=== PATIENT | female | born 1950 | race Native Hawaiian/Other Pacific Islander ===

== ENCOUNTER 2018-08-31 20:19 | Emergency (ER) | payer MEDICARE, OTHER ==
--- NOTE | 2018-08-31 20:43 | C.PDOC ---
History Of Present Illness pt tripped and fell on the street [employer]. No LOc. complaining of headache. No n/v, no visual changes, remembers the event. Complains of headache. right wrist pain Time Seen by Provider: 08/31/18 20:42 Chief Complaint (Nursing): Trauma History Per: Patient History/Exam Limitations: no limitations Onset/Duration Of Symptoms: Mins Current Symptoms Are (Timing): Still Present Severity: Moderate Pain Scale Rating Of: 3 Reports Recently: Treated By A Physician Recent travel outside of the [place]: No Additional History Per: Patient Past Medical History Reviewed: Historical Data, Nursing Documentation, Vital Signs Vital Signs: Last Vital Signs Temp 97.4 F L 08/31/18 20:30 Pulse 74 08/31/18 20:30 Resp 14 08/31/18 20:30 BP 149/88 08/31/18 20:30 Pulse Ox 97 08/31/18 20:30 Family History: States: No Known Family Hx - Social History Hx Alcohol Use: No Hx Substance Use: No - Immunization History Hx Tetanus Toxoid Vaccination: No Hx Influenza Vaccination: No Hx Pneumococcal Vaccination: No Review Of Systems Constitutional: Negative for: Fever, Chills Eyes: Negative for: Vision Change ENT: Negative for: Ear Discharge Cardiovascular: Negative for: Chest Pain Respiratory: Negative for: Shortness of Breath Musculoskeletal: Positive for: Other (wrist) Skin: Positive for: Other (abrasion right knee) Neurological: Positive for: Headache. Negative for: Weakness, Change in Speech, Confusion, Altered Mental Status, Dizziness Psych: Negative for: Anxiety Physical Exam - Physical Exam Appears: Non-toxic, No Acute Distress Skin: Warm, Dry Head: Tenderness, Laceration (2 cm right amish) Eye(s): bilateral: Normal Inspection Oral Mucosa: Moist Tongue: Normal Appearing Neck: Trachea Midline, Supple Cardiovascular: Rhythm Regular Respiratory: No Rales, No Rhonchi, No Wheezing Extremity: Other (abrasion r knee) Extremity: Bilateral: Normal ROM Neurological/Psych: Oriented x3, Normal Speech, Normal Cognition Gait: Steady ED Course And Treatment O2 Sat by Pulse Oximetry: 97 Pulse Ox Interpretation: Normal Laceration - Laceration Repair right amish Wound Length (In cm): 2 Description Of Wound: Linear Wound Cleansed With: Betadine, Sterile Saline Wound Examination: Irrigated With Saline Wound Closure: Suture (6) Suture Technique And Material Used: Prolene (6-o) Medical Decision Making Medical Decision Making: Upon provider reevaluation patient is feeling better, is medically stable, and requires no further treatment in the ED at this time. Patient will be discharged home . Counseling was provided and all questions were answered regarding diagnosis and need for follow up withdr gustafson. There is agreement to discharge plan. Return if symptoms persist or worsen. Disposition Counseled Patient/Family Regarding: Studies Performed, Diagnosis, Need For Followup - Disposition Referrals: Luis Angel Gustafson MD [Staff Provider] - Disposition: HOME/ ROUTINE Disposition Time: 20:42 Condition: FAIR Additional Instructions: Have sutures removed in 7 days Instructions: Laceration Repair With Stitches (DC), Minor Head Injury (DC), Wrist Sprain (DC), Skin Abrasions (DC), Wound Care (DC) Forms: [employer] (Montenegrin) - Clinical Impression Clinical Impression: Fall, Laceration of face, Contusion of wrist, right, Abrasion of knee, right, Minor head injury without loss of consciousness
[2018-08-31] MEDS ORDERED: Lidocaine Hydrochloride 0 ML INJ ONE (21:58)
[2018-08-31] MEDS ORDERED: Tdap Vaccine 0.5 ml Vial (10-64 yrs) IM ONE ×2 (22:04→22:15)
[2018-08-31] MEDS ORDERED: Lidocaine 1% w Epi 1:100,000 Inj INJ ONE (22:15)
[2018-08-31 23:18] VITALS: BP 118/73; PULSE 63; RESP 16; TEMP 97.7; O2SAT 98
--- NOTE | 2018-09-01 07:08 | CT ---
Date of service: 08/31/2018 PROCEDURE: CT HEAD WITHOUT CONTRAST. HISTORY: Head injury. COMPARISON: None available. TECHNIQUE: Axial computed tomography images were obtained through the head/brain without intravenous contrast. Radiation dose: Total exam DLP = 1034.67 mGy-cm. This CT exam was performed using one or more of the following dose reduction techniques: Automated exposure control, adjustment of the mA and/or kV according to patient size, and/or use of iterative reconstruction technique. FINDINGS: HEMORRHAGE: No intracranial hemorrhage. BRAIN: No mass effect or edema. Scattered focal lucencies in the subcortical and periventricular white matter suggestive for chronic microvascular ischemic change. Punctate hypodensity in the left basal ganglia may represent a small lacunar infarct. VENTRICLES: Unremarkable. No hydrocephalus. CALVARIUM: Unremarkable. PARANASAL SINUSES: Unremarkable as visualized. No significant inflammatory changes. MASTOID AIR CELLS: Unremarkable as visualized. No inflammatory changes. OTHER FINDINGS: None. IMPRESSION: No acute intracranial abnormality. If symptoms persists, consider correlation with MRI. A preliminary report was generated at 10:08 p.m. on 08/31/[address] Nguyễn Mcmillan from [facility] ([employer]).
--- NOTE | 2018-09-01 08:31 | RAD ---
Date of service: 08/31/2018 PROCEDURE: Right Wrist Radiographs. HISTORY: fall COMPARISON: None. TECHNIQUE: 4 views obtained. FINDINGS: BONES: Normal. No fracture. JOINTS: Normal. No dislocation. SOFT TISSUES: Normal. OTHER FINDINGS: None. IMPRESSION: Normal right wrist radiographs.
== END 2018-08-31 23:15 | disposition home or self-care (01) ==
LOC: C.ER 20:19
DX: S01.81XA Laceration without foreign body of other part of head, initial encounter (principal); S60.211A Contusion of right wrist, initial encounter; S80.211A Abrasion, right knee, initial encounter; W01.0XXA Fall on same level from slipping, tripping and stumbling without subsequent striking against object, initial encounter; Y92.410 Unspecified street and highway as the place of occurrence of the external cause; Z23 Encounter for immunization